=== PATIENT | female | born 1990 ===

== ENCOUNTER 2025-04-14 07:54 | Outpatient (AMB) | payer OTHER, SELFPAY ==
[2025-04-14 08:05] VITALS: BP 129/82; PULSE 90; RESP 16; O2SAT 99
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
== END 2025-04-14 08:41 | disposition home or self-care (01) ==
PROVIDERS: PCP Nurse Practitioner Family; Visit Provider Registered Nurse Emergency
DX: M43.02 Spondylolysis, cervical region (principal); G89.4 Chronic pain syndrome
CPT/HCPCS: 99204; G2211